=== PATIENT | female | born 1975 | race Caucasian/White ===

== ENCOUNTER 2019-03-03 20:07 | Emergency (ER) | payer MEDICARE, MEDICAID ==
[~2019-03-03] VITALS: Ht 170.2 cm; Wt 95.0 kg
[~2019-03-03 20:07] MED LIST: ALBU8HFA PO
[2019-03-03] MEDS ORDERED: cyclobenzaprine 10mg tablet PO ONE (20:55)
[2019-03-03] MEDS ORDERED: ketorolac trometh. 30mg/ml inj. IM ONE (20:55)
[2019-03-03] MEDS ORDERED: morphine 4 MG/ML inj SYRINge IM ONE ×2 (20:55→23:00)
[2019-03-03 22:46] LABS: CLARITY,URINE CLEAR (Clear); COLOR,URINE YELLOW (Yellow); GLUCOSE, URINE NEGATIVE (Neg); KETONES,URINE NEGATIVE (Neg); LEUKOCYTE ESTERASE ,URINE NEGATIVE (Neg); NITRITES, URINE NEGATIVE (Neg); OCCULT BLOOD,URINE NEGATIVE (Neg); PROTEIN,URINE NEGATIVE (Neg); UROBILINOGEN,URINE 0.2 E.U/dL (0.2-1.0)
[2019-03-03 22:51] LABS: UA COLLECTION TYPE FOLEY CATH
--- NOTE | 2019-03-03 23:55 | NUR ---
Patient with persisting pain despite medication. Dr. Rodriguez notified and she states additional meds will be ordered.
[2019-03-04] MEDS ORDERED: HYDROmorphone 1 mg/ml syringe IV ONE (00:15)
[2019-03-04 00:32] LABS: BASOPHILS # (AUTO) 0.1 X10'3 (0-0.2); BASOPHILS % (AUTO) 0.9 % (0-1); EOSINOPHILS # (AUTO) 0.2 X10'3 (0-0.9); EOSINOPHILS % (AUTO) 3.9 % (0-6); HEMATOCRIT 33.1 % (35.0-45.0); HEMOGLOBIN 11.5 g/dl (12.0-16.0); LYMPHOCYTES # (AUTO) 2.5 X10'3 (1.1-4.8); LYMPHOCYTES % (AUTO) 40.5 % (21-51); MEAN CORPUSCULAR HEMOGLOBIN 35.4 PG (27.0-31.0); MEAN CORPUSCULAR HGB CONC 34.7 g/dL (33.0-36.5); MEAN CORPUSCULAR VOLUME 101.9 FL (78-98); MEAN PLATELET VOLUME 6.7 FL (7.4-10.4); MONOCYTES # (AUTO) 0.5 X10'3 (0-0.9); MONOCYTES % (AUTO) 7.9 % (2-12); NEUTROPHILS # (AUTO) 2.9 X10'3 (1.8-7.7); NEUTROPHILS % (AUTO) 46.8 % (42-75); PLATELET COUNT 280 X10'3 (140-440); RED BLOOD COUNT 3.25 X10'6 (4.20-5.60); WHITE BLOOD COUNT 6.2 X10'3 (4.5-11.0)
--- NOTE | 2019-03-04 00:33 | NUR ---
Report called to [facility] [place] [facility]. Patient updated on POC.
[2019-03-04 00:50] LABS: ALANINE AMINOTRANSFERASE 74 U/L (12-78); ALBUMIN/GLOBULIN RATIO 1.1 (1.1-1.5); ALKALINE PHOSPHATASE 71 IU/L (46-116); ANION GAP 10 (8-16); ASPARTATE AMINO TRANSFERASE 51 U/L (10-37); BILIRUBIN,TOTAL 0.3 MG/DL (0.1-1.0); BLOOD UREA NITROGEN 19 MG/DL (7-18); BUN/CREATININE RATIO 11.2 (6.6-38.0); CALCIUM 9.1 MG/DL (8.5-10.1); CHLORIDE 106 MMOL/L (99-107); GLUCOSE 108 MG/DL (70-104); POTASSIUM 4.8 MMOL/L (3.5-5.1); SODIUM 141 MMOL/L (135-145); TOTAL CARBON DIOXIDE 25.3 MMOL/L (24-32); TOTAL PROTEIN 7.6 G/DL (6.4-8.2); eGFR 33 ML/MIN
[2019-03-04 01:29] VITALS: BP 110/69
== END 2019-03-04 01:31 | disposition short-term general hospital (02) ==
LOC: ER 20:07
DX: M54.16 Radiculopathy, lumbar region (principal); Z56.0 Unemployment, unspecified; Z98.890 Other specified postprocedural states; Z90.710 Acquired absence of both cervix and uterus; Z88.5 Allergy status to narcotic agent
CPT/HCPCS: 36415; 80053; 81003; 85025; 85610; 96372; 96374; 99285; J1170; J1885; J2270

== ENCOUNTER 2019-07-27 12:24 | Emergency (ER) | payer MEDICARE, MEDICAID ==
[~2019-07-27] VITALS: Ht 170.2 cm; Wt 94.5 kg
[2019-07-27 12:39] VITALS: BP 154/95
[2019-07-27 14:30] LABS: URINE HCG NEGATIVE (NEG)
[2019-07-27] MEDS ORDERED: cyclobenzaprine 10mg tablet PO ONE (14:35)
[2019-07-27] MEDS ORDERED: ketorolac trometh. 30mg/ml inj. IM ONE (14:35)
[2019-07-27] MEDS ORDERED: HYDROcodone/acetaminophen 5mg/325mg tablet PO ONE (14:35)
[2019-07-27 14:37] LABS: CLARITY,URINE SLIGHTLY CLOUDY (Clear); COLOR,URINE YELLOW (Yellow); GLUCOSE, URINE NEGATIVE (Neg); KETONES,URINE NEGATIVE (Neg); LEUKOCYTE ESTERASE ,URINE TRACE (Neg); NITRITES, URINE NEGATIVE (Neg); OCCULT BLOOD,URINE NEGATIVE (Neg); PROTEIN,URINE NEGATIVE (Neg); UROBILINOGEN,URINE 0.2 E.U/dL (0.2-1.0)
[2019-07-27 14:40] LABS: UA COLLECTION TYPE CLN CATCH MIDSTREAM
[2019-07-27 14:44] LABS: BACTERIA,URINE 2+ /HPF (Neg); HYALINE CASTS 0-3 /LPF (NEGATIVE); MUCUS STRANDS MANY /LPF (Neg); RBC,URINE NONE SEEN /HPF (0-2); RENAL CELLS, URINE FEW /HPF; SQUAMOUS EPITHELIAL CELL,UR MODERATE /LPF (FEW); TRANSITIONAL EPI CELLS,URINE FEW /HPF; WBC CLUMPS,URINE FEW /HPF (NEGATIVE)
--- NOTE | 2019-07-27 14:58 | NUR ---
Patient back from CT via wheelchair at this time, no signs of distress noted.
[2019-07-27] MEDS ORDERED: NITR100C PO (15:58)
[2019-07-27] MEDS ORDERED: LIDOcaine 5% patch TP ONE (16:10)
[2019-07-27 16:31] LABS: BASOPHILS % (AUTO) 0.8 % (0-1); EOSINOPHILS % (AUTO) 0.5 % (0-6); HEMATOCRIT 35.7 % (35.0-45.0); HEMOGLOBIN 12.2 g/dl (12.0-16.0); LYMPHOCYTES # (AUTO) 1.8 X10'3 (1.1-4.8); LYMPHOCYTES % (AUTO) 28.5 % (21-51); MEAN CORPUSCULAR HEMOGLOBIN 34.9 PG (27.0-31.0); MEAN CORPUSCULAR HGB CONC 34.2 g/dL (33.0-36.5); MONOCYTES # (AUTO) 0.2 X10'3 (0-0.9); MONOCYTES % (AUTO) 3.4 % (2-12); NEUTROPHILS # (AUTO) 4.1 X10'3 (1.8-7.7); NEUTROPHILS % (AUTO) 66.8 % (42-75); PLATELET COUNT 251 X10'3 (140-440); RED CELL DISTRIBUTION WIDTH 13.9 % (11.5-14.5); WHITE BLOOD COUNT 6.2 X10'3 (4.5-11.0)
[2019-07-27 16:44] LABS: ALANINE AMINOTRANSFERASE 59 U/L (12-78); ALBUMIN/GLOBULIN RATIO 1.1 (1.1-1.5); ALKALINE PHOSPHATASE 94 IU/L (46-116); ANION GAP 11 (8-16); ASPARTATE AMINO TRANSFERASE 63 U/L (10-37); BILIRUBIN,TOTAL 0.6 MG/DL (0.1-1.0); BLOOD UREA NITROGEN 21 MG/DL (7-18); BUN/CREATININE RATIO 18.6 (6.6-38.0); CHLORIDE 103 MMOL/L (99-107); CREATININE 1.13 MG/DL (0.40-0.90); LIPASE 200 U/L (73-393); SODIUM 137 MMOL/L (135-145); TOTAL PROTEIN 7.8 G/DL (6.4-8.2); eGFR 52 ML/MIN
[2019-07-27 16:49] LABS: POTASSIUM 4.2 MMOL/L (3.5-5.1)
[2019-07-27 17:10] LABS: GLUCOSE 131 MG/DL (70-104)
[2019-07-27] MEDS ORDERED: CYCL-1 PO (17:24)
[2019-08-18] MEDS ORDERED: LEVO50TA8 PO (13:44)
[2019-08-18] MEDS ORDERED: OMEP-50 PO (13:44)
[2019-08-18] MEDS ORDERED: TRAM50TA2 PO (13:44)
[2019-08-18] MEDS ORDERED: CHOL4PAC2 PO (13:44)
[2019-08-18] MEDS ORDERED: LOSA25TA41 PO (13:44)
[2019-08-18] MEDS ORDERED: BACL20TA PO (13:44)
[2019-08-30] MEDS ORDERED: HYDR50TA65 PO (17:21)
[2019-08-30] MEDS ORDERED: MIRT15TA8 PO (17:21)
[2019-08-30] MEDS ORDERED: TRAZ150T78 PO (17:21)
[2019-08-30] MEDS ORDERED: TRAM50TA2 PO (17:21)
[2019-08-30] MEDS ORDERED: CLON0.5T4 PO (17:21)
[2019-08-30] MEDS ORDERED: LURA20TA PO (17:21)
[2019-08-30] MEDS ORDERED: ESCI20TA45 PO (17:21)
== END 2019-07-27 18:06 | disposition home or self-care (01) ==
LOC: ER 12:25
DX: S33.5XXA Sprain of ligaments of lumbar spine, initial encounter (principal); N39.0 Urinary tract infection, site not specified; M54.5 Low back pain; Z85.9 Personal history of malignant neoplasm, unspecified; Z98.890 Other specified postprocedural states; Z90.710 Acquired absence of both cervix and uterus; Z56.0 Unemployment, unspecified; Z88.5 Allergy status to narcotic agent; Z79.899 Other long term (current) drug therapy; X58.XXXA Exposure to other specified factors, initial encounter; Y93.89 Activity, other specified; Y92.89 Other specified places as the place of occurrence of the external cause; Y99.8 Other external cause status
CPT/HCPCS: 36415; 72131; 80053; 81001; 81025; 83690; 85025; 87088; 96372; 99284; J1885

== ENCOUNTER 2019-08-01 13:56 | Emergency (ER) | payer MEDICARE, MEDICAID ==
[~2019-08-01] VITALS: Ht 170.2 cm; Wt 90.9 kg
[~2019-08-01 13:56] MED LIST changes: +CYCL-1 PO; +NITR100C PO
[2019-08-01 14:25] LABS: CLARITY,URINE CLEAR (Clear); COLOR,URINE YELLOW (Yellow); GLUCOSE, URINE NEGATIVE (Neg); KETONES,URINE NEGATIVE (Neg); LEUKOCYTE ESTERASE ,URINE NEGATIVE (Neg); NITRITES, URINE NEGATIVE (Neg); OCCULT BLOOD,URINE NEGATIVE (Neg); PROTEIN,URINE NEGATIVE (Neg); UROBILINOGEN,URINE 0.2 E.U/dL (0.2-1.0)
[2019-08-01 14:26] LABS: UA COLLECTION TYPE CLN CATCH MIDSTREAM
[2019-08-01 14:30] LABS: URINE HCG NEGATIVE (NEG)
[2019-08-01 14:52] LABS: BASOPHILS # (AUTO) 0.1 X10'3 (0-0.2); BASOPHILS % (AUTO) 1.5 % (0-1); EOSINOPHILS # (AUTO) 0.1 X10'3 (0-0.9); EOSINOPHILS % (AUTO) 1.3 % (0-6); HEMATOCRIT 36.2 % (35.0-45.0); HEMOGLOBIN 12.3 g/dl (12.0-16.0); LYMPHOCYTES # (AUTO) 2.4 X10'3 (1.1-4.8); LYMPHOCYTES % (AUTO) 36.2 % (21-51); MEAN CORPUSCULAR HEMOGLOBIN 35.4 PG (27.0-31.0); MEAN CORPUSCULAR HGB CONC 33.9 g/dL (33.0-36.5); MEAN CORPUSCULAR VOLUME 104.6 FL (78-98); MEAN PLATELET VOLUME 7.6 FL (7.4-10.4); MONOCYTES # (AUTO) 0.3 X10'3 (0-0.9); MONOCYTES % (AUTO) 4.8 % (2-12); NEUTROPHILS # (AUTO) 3.8 X10'3 (1.8-7.7); NEUTROPHILS % (AUTO) 56.2 % (42-75); PLATELET COUNT 268 X10'3 (140-440); RED BLOOD COUNT 3.46 X10'6 (4.20-5.60); RED CELL DISTRIBUTION WIDTH 13.7 % (11.5-14.5); WHITE BLOOD COUNT 6.7 X10'3 (4.5-11.0)
[2019-08-01] MEDS ORDERED: normal saline 1000ML IV soln IVB ONE (14:55)
[2019-08-01] MEDS ORDERED: ketorolac tromethamine 15mg/ml inj. IV ONE (14:55)
[2019-08-01 15:04] LABS: ALANINE AMINOTRANSFERASE 66 U/L (12-78); ALBUMIN 4.1 G/DL (3.4-5.0); ALKALINE PHOSPHATASE 91 IU/L (46-116); ANION GAP 9 (8-16); ASPARTATE AMINO TRANSFERASE 54 U/L (10-37); BILIRUBIN,TOTAL 0.5 MG/DL (0.1-1.0); BLOOD UREA NITROGEN 21 MG/DL (7-18); BUN/CREATININE RATIO 19.4 (6.6-38.0); CALCIUM 9.3 MG/DL (8.5-10.1); CHLORIDE 98 MMOL/L (99-107); CREATININE 1.08 MG/DL (0.40-0.90); GLUCOSE 119 MG/DL (70-104); POTASSIUM 3.6 MMOL/L (3.5-5.1); SODIUM 135 MMOL/L (135-145); TOTAL CARBON DIOXIDE 28.4 MMOL/L (24-32); TOTAL PROTEIN 8.3 G/DL (6.4-8.2); eGFR 55 ML/MIN
[2019-08-01] MEDS ORDERED: morphine 4 MG/ML inj SYRINge IV ONE (15:30)
[2019-08-01 15:33] LABS: ETHANOL < 0.010 GM/DL (0.0-0.010)
--- NOTE | 2019-08-01 15:51 | NUR ---
gave morphine pts pain 09/10, vs updated, ultrasound at bedside
[2019-08-01] MEDS ORDERED: LIDOcaine 1% 30ml preserv. free vial SQ STA (16:36)
--- NOTE | 2019-08-01 16:59 | NUR ---
set up lidocain and needles for provider and updated vs
[2019-08-01 17:57] VITALS: BP 109/70
[2019-08-18] MEDS ORDERED: OMEP-50 PO (13:44)
[2019-08-18] MEDS ORDERED: CHOL4PAC2 PO (13:44)
[2019-08-18] MEDS ORDERED: TRAM50TA2 PO (13:44)
[2019-08-18] MEDS ORDERED: LOSA25TA41 PO (13:44)
[2019-08-18] MEDS ORDERED: LEVO50TA8 PO (13:44)
[2019-08-18] MEDS ORDERED: BACL20TA PO (13:44)
[2019-08-30] MEDS ORDERED: CLON0.5T4 PO (17:21)
[2019-08-30] MEDS ORDERED: HYDR50TA65 PO (17:21)
[2019-08-30] MEDS ORDERED: TRAZ150T78 PO (17:21)
[2019-08-30] MEDS ORDERED: LURA20TA PO (17:21)
[2019-08-30] MEDS ORDERED: ESCI20TA45 PO (17:21)
[2019-08-30] MEDS ORDERED: MIRT15TA8 PO (17:21)
[2019-08-30] MEDS ORDERED: TRAM50TA2 PO (17:21)
== END 2019-08-01 18:00 | disposition home or self-care (01) ==
LOC: ER 13:56
DX: R10.9 Unspecified abdominal pain (principal); I10 Essential (primary) hypertension; R42 Dizziness and giddiness; R51 Headache; Z85.9 Personal history of malignant neoplasm, unspecified; Z90.710 Acquired absence of both cervix and uterus; Z98.890 Other specified postprocedural states; Z87.891 Personal history of nicotine dependence; Z56.0 Unemployment, unspecified; Z88.5 Allergy status to narcotic agent; Z79.899 Other long term (current) drug therapy
CPT/HCPCS: 36415; 76775; 80053; 80320; 81003; 81025; 85025; 96374; 96375; 99285; J1885; J2270; J7030

== ENCOUNTER 2019-10-09 07:58 | Emergency (ER) | payer MEDICARE, MEDICAID ==
[~2019-10-09] VITALS: Ht 170.2 cm; Wt 100.7 kg
[~2019-10-09 07:58] MED LIST changes: -ALBU8HFA PO; +CHOL4PAC2 PO; +CLON0.5T4 PO; -CYCL-1 PO; +ESCI20TA45 PO; +HYDR50TA65 PO; +LEVO50TA8 PO; +LOSA25TA41 PO; +LURA20TA PO; +MIRT15TA8 PO; -NITR100C PO; +OMEP-50 PO; +TRAM50TA2 PO; +TRAZ150T78 PO
[2019-10-09] MEDS ORDERED: ketorolac tromethamine 15mg/ml inj. IM ONE (08:40)
[2019-10-09] MEDS ORDERED: DIAZ-351 PO (08:47)
[2019-10-09] MEDS ORDERED: METH-360 PO (08:47)
[2019-10-09] MEDS ORDERED: PRED20TA PO (08:47)
[2019-10-09] MEDS ORDERED: diazepam 5mg tablet PO ONE (09:00)
[2019-10-09] MEDS ORDERED: dexamethasone 4mg tablet PO ONE (09:00)
[2019-10-09 09:22] VITALS: BP 117/78
== END 2019-10-09 09:23 | disposition home or self-care (01) ==
LOC: ER 07:58
DX: S16.1XXA Strain of muscle, fascia and tendon at neck level, initial encounter (principal); G58.8 Other specified mononeuropathies; I10 Essential (primary) hypertension; Z85.9 Personal history of malignant neoplasm, unspecified; Z90.710 Acquired absence of both cervix and uterus; Z98.890 Other specified postprocedural states; Z56.0 Unemployment, unspecified; Z88.5 Allergy status to narcotic agent; Z79.899 Other long term (current) drug therapy; X58.XXXA Exposure to other specified factors, initial encounter; Y93.89 Activity, other specified; Y92.89 Other specified places as the place of occurrence of the external cause; Y99.8 Other external cause status
CPT/HCPCS: 96372; 99284; J1885

== ENCOUNTER 2019-10-10 03:21 | Emergency (ER) | payer MEDICARE, MEDICAID ==
[~2019-10-10] VITALS: Ht 170.2 cm; Wt 95.5 kg
[~2019-10-10 03:21] MED LIST changes: +METH-360 PO; +PRED20TA PO
[2019-10-10] MEDS ORDERED: normal saline 1000ml 1,000 ML IV ONE (04:00)
[2019-10-10] MEDS ORDERED: aspirin 325mg tablet PO ONE (04:00)
[2019-10-10] MEDS ORDERED: acetaminophen 325mg tablet PO ONE (04:00)
[2019-10-10] MEDS ORDERED: HYDROcodone/acetaminophen 5mg/325mg tablet PO ONE (04:00)
[2019-10-10] MEDS ORDERED: proCHLORperazine 10 MG/2 ml inj IV ONE (04:00)
[2019-10-10] MEDS ORDERED: ketorolac trometh. 30mg/ml inj. IV ONE (04:00)
[2019-10-10 04:55] VITALS: BP 135/77
== END 2019-10-10 04:56 | disposition home or self-care (01) ==
LOC: ER 03:21
DX: R51 Headache (principal); M54.5 Low back pain; M54.2 Cervicalgia; I10 Essential (primary) hypertension; Z90.710 Acquired absence of both cervix and uterus; Z56.0 Unemployment, unspecified; Z98.890 Other specified postprocedural states; Z88.5 Allergy status to narcotic agent; Z79.899 Other long term (current) drug therapy
CPT/HCPCS: 96374; 96375; 99284; J0780; J1885; J7030; 96361

== ENCOUNTER 2020-12-27 22:29 | Emergency (ER) | payer MEDICARE, MEDICAID ==
[~2020-12-27] VITALS: Ht 170.2 cm; Wt 100.0 kg
[~2020-12-27 22:29] MED LIST changes: +ESCI20TA39 PO; -ESCI20TA45 PO; +MIRT-87 PO; -MIRT15TA8 PO
[2020-12-27 23:37] LABS: HEMOGLOBIN 10.1 g/dl (12.0-16.0)
[2020-12-27 23:39] LABS: BASOPHILS % (AUTO) 0.6 % (0-1); EOSINOPHILS # (AUTO) 0.1 X10'3 (0-0.9); EOSINOPHILS % (AUTO) 2.4 % (0-6); HEMATOCRIT 29.1 % (35.0-45.0); LYMPHOCYTES # (AUTO) 1.9 X10'3 (1.1-4.8); LYMPHOCYTES % (AUTO) 37.4 % (21-51); MEAN CORPUSCULAR HEMOGLOBIN 34.4 PG (27.0-31.0); MEAN CORPUSCULAR HGB CONC 34.8 g/dL (33.0-36.5); MEAN CORPUSCULAR VOLUME 98.9 FL (78-98); MEAN PLATELET VOLUME 7.1 FL (7.4-10.4); MONOCYTES # (AUTO) 0.3 X10'3 (0-0.9); MONOCYTES % (AUTO) 6.4 % (2-12); NEUTROPHILS # (AUTO) 2.7 X10'3 (1.8-7.7); NEUTROPHILS % (AUTO) 53.2 % (42-75); PLATELET COUNT 212 X10'3 (140-440); RED BLOOD COUNT 2.94 X10'6 (4.20-5.60); RED CELL DISTRIBUTION WIDTH 13.2 % (11.5-14.5)
[2020-12-27 23:50] LABS: ALANINE AMINOTRANSFERASE 23 U/L (12-78); ALBUMIN 3.5 G/DL (3.4-5.0); ALBUMIN/GLOBULIN RATIO 0.9 (1.1-1.5); ALKALINE PHOSPHATASE 56 IU/L (46-116); ANION GAP 12 (8-16); ASPARTATE AMINO TRANSFERASE 13 U/L (10-37); BILIRUBIN,TOTAL 0.2 MG/DL (0.1-1.0); BLOOD UREA NITROGEN 19 MG/DL (7-18); BUN/CREATININE RATIO 19.4 (6.6-38.0); CALCIUM 8.8 MG/DL (8.5-10.1); CHLORIDE 104 MMOL/L (99-107); CREATININE 0.98 MG/DL (0.40-0.90); GLUCOSE 124 MG/DL (70-104); POTASSIUM 4.2 MMOL/L (3.5-5.1); SODIUM 142 MMOL/L (135-145); TOTAL CARBON DIOXIDE 25.8 MMOL/L (24-32); TOTAL PROTEIN 7.4 G/DL (6.4-8.2); eGFR 61 ML/MIN
[2020-12-27 23:58] LABS: CLARITY,URINE CLEAR (Clear); COLOR,URINE STRAW (Yellow); GLUCOSE, URINE NEGATIVE (Neg); KETONES,URINE TRACE mg/dl (Neg); LEUKOCYTE ESTERASE ,URINE NEGATIVE (Neg); NITRITES, URINE NEGATIVE (Neg); OCCULT BLOOD,URINE NEGATIVE (Neg); PROTEIN,URINE NEGATIVE (Neg); UA COLLECTION TYPE CLN CATCH MIDSTREAM; UROBILINOGEN,URINE 0.2 E.U/dL (0.2-1.0)
[2020-12-27 23:59] LABS: ETHANOL 0.092 GM/DL (0.0-0.010)
[2020-12-27 23:59] LABS: URINE HCG NEGATIVE (NEG)
[2020-12-28 00:04] LABS: URINE AMPHETAMINE SCREEN NEGATIVE (Neg); URINE BARBITUATE SCREEN NEGATIVE (Neg); URINE BENZODIAZEPINES SCREEN NEGATIVE (Neg); URINE CANNABINOID SCREEN NEGATIVE (Neg); URINE COCAINE SCREEN NEGATIVE (Neg); URINE METHADONE SCREEN NEGATIVE (Neg); URINE OPIATE SCREEN POSITIVE (Neg); URINE PHENCYCLIDINE SCREEN NEGATIVE (Neg)
[2020-12-28 00:16] LABS: TOTAL CELLS COUNTED 100
[2020-12-28 00:17] LABS: PLATELET ESTIMATE NORMAL
[2020-12-28 00:20] LABS: LARGE PLATELETS FEW
[2020-12-28] MEDS ORDERED: CYCL-394 PO (00:40)
[2020-12-28] MEDS ORDERED: HYDR-3965 PO (00:42)
[2020-12-28 06:07] VITALS: BP 116/70
--- NOTE | 2020-12-28 08:24 | NUR ---
PACKET FAXED TO [facility]
== END 2020-12-28 10:01 ==
LOC: ER 22:30
DX: R45.851 Suicidal ideations (principal); I10 Essential (primary) hypertension; Z87.440 Personal history of urinary (tract) infections; Z87.442 Personal history of urinary calculi; Z98.891 History of uterine scar from previous surgery; Z90.710 Acquired absence of both cervix and uterus; F33.9 Major depressive disorder, recurrent, unspecified; Z88.8 Allergy status to other drugs, medicaments and biological substances; Z79.899 Other long term (current) drug therapy; Z85.9 Personal history of malignant neoplasm, unspecified; Z56.0 Unemployment, unspecified
CPT/HCPCS: 36415; 80053; 80305; 80320; 81003; 81025; 84443; 85007; 85025; 99285

== ENCOUNTER 2021-01-02 23:24 | Emergency (ER) | payer MEDICARE, MEDICAID ==
[~2021-01-02] VITALS: Ht 170.2 cm; Wt 100.0 kg
[~2021-01-02 23:24] MED LIST changes: -CHOL4PAC2 PO; -CLON0.5T4 PO; +CYCL-394 PO; -ESCI20TA39 PO; +HYDR-3965 PO; -HYDR50TA65 PO; -LEVO50TA8 PO; -LURA20TA PO; -METH-360 PO; -MIRT-87 PO; -OMEP-50 PO; -PRED20TA PO; -TRAM50TA2 PO; -TRAZ150T78 PO
[2021-01-02 23:48] VITALS: BP 140/92
== END 2021-01-03 03:46 | disposition left against medical advice (07) ==
LOC: ER 23:25
DX: Z53.21 Procedure and treatment not carried out due to patient leaving prior to being seen by health care provider (principal)

== ENCOUNTER 2021-01-03 07:43 | Emergency (ER) | payer MEDICARE, MEDICAID ==
[~2021-01-03] VITALS: Ht 170.2 cm; Wt 104.5 kg
[2021-01-03 07:55] VITALS: BP 154/91
== END 2021-01-03 08:37 | disposition home or self-care (01) ==
LOC: ER 07:43
DX: F33.9 Major depressive disorder, recurrent, unspecified (principal); R45.851 Suicidal ideations; I10 Essential (primary) hypertension; Z87.442 Personal history of urinary calculi; Z87.440 Personal history of urinary (tract) infections; Z85.9 Personal history of malignant neoplasm, unspecified; Z98.891 History of uterine scar from previous surgery; Z90.710 Acquired absence of both cervix and uterus; Z59.00 Homelessness unspecified; Z88.8 Allergy status to other drugs, medicaments and biological substances; Z79.899 Other long term (current) drug therapy
CPT/HCPCS: 99281

== ENCOUNTER 2021-01-13 14:01 | Emergency (ER) | payer MEDICARE, MEDICAID ==
[~2021-01-13] VITALS: Ht 170.2 cm; Wt 100.0 kg
[2021-01-13 14:18] VITALS: BP 115/46
== END 2021-01-13 15:36 | disposition left against medical advice (07) ==
LOC: ER 14:03
DX: M79.89 Other specified soft tissue disorders (principal); Z53.21 Procedure and treatment not carried out due to patient leaving prior to being seen by health care provider

== ENCOUNTER 2021-01-14 15:51 | Emergency (ER) | payer MEDICARE, MEDICAID ==
[~2021-01-14] VITALS: Ht 172.1 cm; Wt 99.5 kg
[2021-01-14 16:07] VITALS: BP 115/55
[2021-01-15] MEDS ORDERED: FURO-150 PO (13:14)
== END 2021-01-14 21:21 | disposition left against medical advice (07) ==
LOC: ER 15:52
DX: R60.0 Localized edema (principal); Z53.21 Procedure and treatment not carried out due to patient leaving prior to being seen by health care provider

== ENCOUNTER 2021-01-15 07:08 | Emergency (ER) | payer MEDICARE, MEDICAID ==
[~2021-01-15] VITALS: Ht 170.2 cm; Wt 100.0 kg
[2021-01-15 07:34] VITALS: BP 119/69
[2021-01-15 08:16] LABS: BASOPHILS % (AUTO) 0.7 % (0-1); EOSINOPHILS # (AUTO) 0.2 X10'3 (0-0.9); EOSINOPHILS % (AUTO) 3.6 % (0-6); HEMATOCRIT 29.4 % (35.0-45.0); HEMOGLOBIN 10.2 g/dl (12.0-16.0); LYMPHOCYTES # (AUTO) 2.5 X10'3 (1.1-4.8); LYMPHOCYTES % (AUTO) 42.9 % (21-51); MEAN CORPUSCULAR HEMOGLOBIN 33.9 PG (27.0-31.0); MEAN CORPUSCULAR HGB CONC 34.6 g/dL (33.0-36.5); MEAN CORPUSCULAR VOLUME 97.8 FL (78-98); MEAN PLATELET VOLUME 7.4 FL (7.4-10.4); MONOCYTES # (AUTO) 0.4 X10'3 (0-0.9); MONOCYTES % (AUTO) 7.6 % (2-12); NEUTROPHILS # (AUTO) 2.6 X10'3 (1.8-7.7); NEUTROPHILS % (AUTO) 45.2 % (42-75); PLATELET COUNT 276 X10'3 (140-440); RED BLOOD COUNT 3.01 X10'6 (4.20-5.60); RED CELL DISTRIBUTION WIDTH 13.5 % (11.5-14.5); WHITE BLOOD COUNT 5.8 X10'3 (4.5-11.0)
[2021-01-15 08:26] LABS: ALANINE AMINOTRANSFERASE 32 U/L (12-78); ALBUMIN 3.5 G/DL (3.4-5.0); ALBUMIN/GLOBULIN RATIO 0.9 (1.1-1.5); ALKALINE PHOSPHATASE 86 IU/L (46-116); ANION GAP 9 (8-16); ASPARTATE AMINO TRANSFERASE 24 U/L (10-37); BILIRUBIN,TOTAL 0.3 MG/DL (0.1-1.0); BLOOD UREA NITROGEN 22 MG/DL (7-18); BUN/CREATININE RATIO 22.4 (6.6-38.0); CALCIUM 8.8 MG/DL (8.5-10.1); CHLORIDE 103 MMOL/L (99-107); CREATININE 0.98 MG/DL (0.40-0.90); GLUCOSE 137 MG/DL (70-104); POTASSIUM 4.6 MMOL/L (3.5-5.1); SODIUM 140 MMOL/L (135-145); TOTAL CARBON DIOXIDE 28.5 MMOL/L (24-32); TOTAL PROTEIN 7.2 G/DL (6.4-8.2); eGFR 61 ML/MIN
[2021-01-15] MEDS ORDERED: FURO-150 PO (13:14)
== END 2021-01-15 14:15 | disposition home or self-care (01) ==
LOC: ER 07:09
DX: R60.9 Edema, unspecified (principal); I10 Essential (primary) hypertension; Z87.442 Personal history of urinary calculi; Z56.0 Unemployment, unspecified; Z88.5 Allergy status to narcotic agent
CPT/HCPCS: 36415; 71045; 80053; 83880; 84484; 85025; 93005; 99285

== ENCOUNTER 2021-01-25 11:07 | Emergency (ER) | payer MEDICARE, MEDICAID ==
[~2021-01-25 11:07] MED LIST changes: +FURO-150 PO
== END 2021-01-25 12:24 | disposition left against medical advice (07) ==
LOC: ER 11:08
DX: M79.606 Pain in leg, unspecified (principal); Z53.21 Procedure and treatment not carried out due to patient leaving prior to being seen by health care provider

== ENCOUNTER 2021-01-26 19:17 | Emergency (ER) | payer MEDICARE, MEDICAID ==
[~2021-01-26] VITALS: Ht 170.2 cm; Wt 115.9 kg
[2021-01-26 22:13] LABS: RED CELL DISTRIBUTION WIDTH 13.2 % (11.5-14.5)
[2021-01-26 22:15] LABS: BASOPHILS # (AUTO) 0.1 X10'3 (0-0.2); BASOPHILS % (AUTO) 1.4 % (0-1); EOSINOPHILS # (AUTO) 0.3 X10'3 (0-0.9); EOSINOPHILS % (AUTO) 2.9 % (0-6); HEMATOCRIT 28.6 % (35.0-45.0); HEMOGLOBIN 10.1 g/dl (12.0-16.0); LYMPHOCYTES # (AUTO) 2.2 X10'3 (1.1-4.8); LYMPHOCYTES % (AUTO) 23.3 % (21-51); MEAN CORPUSCULAR HEMOGLOBIN 33.6 PG (27.0-31.0); MEAN CORPUSCULAR HGB CONC 35.3 g/dL (33.0-36.5); MONOCYTES # (AUTO) 0.7 X10'3 (0-0.9); MONOCYTES % (AUTO) 7.5 % (2-12); NEUTROPHILS # (AUTO) 6.1 X10'3 (1.8-7.7); NEUTROPHILS % (AUTO) 64.9 % (42-75); PLATELET COUNT 413 X10'3 (140-440); RED BLOOD COUNT 3.01 X10'6 (4.20-5.60); WHITE BLOOD COUNT 9.4 X10'3 (4.5-11.0)
[2021-01-26 22:27] LABS: ALANINE AMINOTRANSFERASE 33 U/L (12-78); ALBUMIN 3.5 G/DL (3.4-5.0); ALBUMIN/GLOBULIN RATIO 0.9 (1.1-1.5); ALKALINE PHOSPHATASE 83 IU/L (46-116); ANION GAP 8 (8-16); ASPARTATE AMINO TRANSFERASE 21 U/L (10-37); BILIRUBIN,TOTAL 0.3 MG/DL (0.1-1.0); BLOOD UREA NITROGEN 17 MG/DL (7-18); BUN/CREATININE RATIO 15.5 (6.6-38.0); CALCIUM 9.4 MG/DL (8.5-10.1); CHLORIDE 98 MMOL/L (99-107); GLUCOSE 141 MG/DL (70-104); POTASSIUM 4.2 MMOL/L (3.5-5.1); SODIUM 135 MMOL/L (135-145); TOTAL CARBON DIOXIDE 28.9 MMOL/L (24-32); TOTAL PROTEIN 7.5 G/DL (6.4-8.2); eGFR 53 ML/MIN
[2021-01-26] MEDS ORDERED: acetaminophen 325mg tablet PO ONE (23:05)
[2021-01-26 23:21] VITALS: BP 110/77
[2021-01-26] MEDS ORDERED: ketorolac tromethamine 15mg/ml inj. IM ONE (23:25)
== END 2021-01-27 00:14 | disposition home or self-care (01) ==
LOC: ER 19:17
DX: R60.0 Localized edema (principal); R06.02 Shortness of breath; R05.9 Cough, unspecified; I10 Essential (primary) hypertension; F32.9 Major depressive disorder, single episode, unspecified; Z87.442 Personal history of urinary calculi; Z87.440 Personal history of urinary (tract) infections; Z85.9 Personal history of malignant neoplasm, unspecified; Z90.710 Acquired absence of both cervix and uterus; Z98.890 Other specified postprocedural states; Z56.0 Unemployment, unspecified; Z88.5 Allergy status to narcotic agent; Z88.8 Allergy status to other drugs, medicaments and biological substances; Z79.899 Other long term (current) drug therapy
CPT/HCPCS: 36415; 71045; 80053; 83880; 85025; 96372; 99284; J1885

== ENCOUNTER 2021-02-15 16:32 | Emergency (ER) | payer MEDICARE, MEDICAID ==
[~2021-02-15] VITALS: Ht 170.2 cm; Wt 104.5 kg
--- NOTE | 2021-02-15 17:51 | NUR ---
CALLED POISON CONTROL; DINESH BARNES: PROPANOLOL CAN CAUSE HYPOTENSION, SEIZURES, QR WIDENING; COULD MONITOR/OBS UP TO 12 HRS; CHECK ALL NORMAL LABS AND EKG; "MOSTLY SYMPTOMATIC CARE"; GLUCAGON IF NECESSARY 5MG IV BOLUS THEN START 5MG PER HOUR DRIP UP TO 10 MG PER HOUR BOLUS AND DRIP; CALL POISON CONTROL IF PT REMAINS HYPOTENSIVE BRADYCARDIC. CASE [id number]
--- NOTE | 2021-02-15 18:29 | NUR ---
Patient awake, alert, and orientedx4. She is laughing and joking about taking her medication and cannot/won't provide accurate details of when or how many pills she took. Up to commode and back to bed without incident.
[2021-02-15 18:36] LABS: ALANINE AMINOTRANSFERASE 31 U/L (12-78); ALBUMIN 4.3 G/DL (3.4-5.0); ALKALINE PHOSPHATASE 63 IU/L (46-116); ANION GAP 12 (8-16); ASPARTATE AMINO TRANSFERASE 20 U/L (10-37); BILIRUBIN,TOTAL 0.3 MG/DL (0.1-1.0); BLOOD UREA NITROGEN 24 MG/DL (7-18); BUN/CREATININE RATIO 22.9 (6.6-38.0); CALCIUM 9.8 MG/DL (8.5-10.1); CHLORIDE 101 MMOL/L (99-107); CREATININE 1.05 MG/DL (0.40-0.90); GLUCOSE 127 MG/DL (70-104); POTASSIUM 3.3 MMOL/L (3.5-5.1); SODIUM 142 MMOL/L (135-145); TOTAL CARBON DIOXIDE 28.8 MMOL/L (24-32); TOTAL PROTEIN 8.8 G/DL (6.4-8.2); eGFR 56 ML/MIN
[2021-02-15 18:41] LABS: MEAN PLATELET VOLUME 7.5 FL (7.4-10.4); MONOCYTES # (AUTO) 0.3 X10'3 (0-0.9); RED CELL DISTRIBUTION WIDTH 14.6 % (11.5-14.5)
[2021-02-15 18:43] LABS: BASOPHILS # (AUTO) 0.1 X10'3 (0-0.2); BASOPHILS % (AUTO) 1.5 % (0-1); EOSINOPHILS % (AUTO) 0.6 % (0-6); HEMATOCRIT 35.8 % (35.0-45.0); HEMOGLOBIN 12.2 g/dl (12.0-16.0); LYMPHOCYTES # (AUTO) 2.5 X10'3 (1.1-4.8); LYMPHOCYTES % (AUTO) 32.9 % (21-51); MEAN CORPUSCULAR HEMOGLOBIN 31.4 PG (27.0-31.0); MEAN CORPUSCULAR HGB CONC 34.2 g/dL (33.0-36.5); MEAN CORPUSCULAR VOLUME 91.6 FL (78-98); NEUTROPHILS # (AUTO) 4.6 X10'3 (1.8-7.7); PLATELET COUNT 368 X10'3 (140-440); WHITE BLOOD COUNT 7.6 X10'3 (4.5-11.0)
[2021-02-15 18:44] LABS: URINE AMPHETAMINE SCREEN POSITIVE (Neg); URINE BARBITUATE SCREEN NEGATIVE (Neg); URINE BENZODIAZEPINES SCREEN NEGATIVE (Neg); URINE CANNABINOID SCREEN NEGATIVE (Neg); URINE COCAINE SCREEN NEGATIVE (Neg); URINE METHADONE SCREEN NEGATIVE (Neg); URINE OPIATE SCREEN NEGATIVE (Neg); URINE PHENCYCLIDINE SCREEN NEGATIVE (Neg)
[2021-02-15 18:45] LABS: ETHANOL 0.135 GM/DL (0.0-0.010)
[2021-02-15 18:48] LABS: URINE HCG NEGATIVE (NEG)
[2021-02-15 18:50] LABS: ACETAMINOPHEN < 2.0 UG/ML (10-30)
--- NOTE | 2021-02-15 19:30 | NUR ---
QTC greater than 500 on 5 lead. 12 lead EKG repeated and has increased since previous. Poison control contacted and updated with current numbers and previous EKG numbers discussed with them as well. They recommend giving potassium to keep it above 4 as well as 1-2 amps bicarb and 1-2 grams of magnesium with a repeat EKG to evaluate QTC and QRS.
--- NOTE | 2021-02-15 19:31 | NUR ---
Bong Collins notified of conversation with poison control.
[2021-02-15] MEDS ORDERED: magnesium 2GM in 50ml NS 50 ML IV ONE (19:35)
[2021-02-15] MEDS ORDERED: potassium Cl 40 mEq/0.45% sodium chloride IV soln 520ml IV ONE (19:35)
[2021-02-15] MEDS ORDERED: sodium bicarbonate (8.4%) inj. 50 MEQ in dextrose 5%-water 1,000 ML IV SCH (19:35)
[2021-02-15] MEDS ORDERED: sodium bicarbonate (8.4%) 1 mEq/ml syringe IV ONE (19:45)
[2021-02-15] MEDS ORDERED: sodium bicarbonate (8.4%) inj. 1 MEQ/ML ML ONE (20:03)
[2021-02-15] MEDS: potassium Cl 10 mEq/100mL bag IV SCH ×3 (20:19→21:08)
[2021-02-15 20:25] LABS: TOTAL CELLS COUNTED 100
[2021-02-15] MEDS ORDERED: potassium Cl 20 mEq SR tablet PO STA (20:25)
[2021-02-15 20:27] LABS: LARGE PLATELETS FEW; PLATELET ESTIMATE NORMAL
--- NOTE | 2021-02-15 20:30 | NUR ---
Patient resting, no distress.
--- NOTE | 2021-02-15 21:50 | NUR ---
patient is calm and cooperative, denies pain, vss
--- NOTE | 2021-02-15 22:30 | NUR ---
patient appears to be resting comfortably with zero signs or symptoms of distress or pain
[2021-02-15 23:19] LABS: MAGNESIUM 2.2 MG/DL (1.5-2.4); POTASSIUM 3.8 MMOL/L (3.5-5.1)
--- NOTE | 2021-02-15 23:48 | NUR ---
patient amb ind to BR and back. denies pain.
--- NOTE | 2021-02-16 00:46 | NUR ---
patient appears to be sleeping with zero s+s distress or pain
[2021-02-16] MEDS ORDERED: potassium Cl 20 mEq SR tablet PO STA (00:51)
--- NOTE | 2021-02-16 01:07 | NUR ---
Resting comfortably, no distress.
--- NOTE | 2021-02-16 02:16 | NUR ---
resting comfortably in bed
--- NOTE | 2021-02-16 03:30 | NUR ---
prosper complains of intermittent back pain worsening. see MD cha and MAR.
[2021-02-16] MEDS ORDERED: HYDROcodone/acetaminophen 5mg/325mg tablet PO ONE (03:35)
--- NOTE | 2021-02-16 04:48 | NUR ---
patient appears asleep without distress or pain
[2021-02-16 05:17] VITALS: BP 120/67
--- NOTE | 2021-02-16 06:45 | NUR ---
Pt.ambulatory from ER, no distress.
--- NOTE | 2021-02-16 06:50 | NUR ---
Patient placed on a school bus monitor. Patient in NSR. No ectopy seen. Continue to monitor.
--- NOTE | 2021-02-16 08:45 | NUR ---
Pt. in bed eating breakfast, no distress
--- NOTE | 2021-02-16 08:45 | NUR ---
Elsie olson in ED - 02/16/21 at 0913 by MARY Pt. in bed eating breakfast, no distress
--- NOTE | 2021-02-16 08:50 | NUR ---
[facility] Packet sent.
[2021-02-16] MEDS ORDERED: LOSA50TA3 PO (10:37)
[2021-02-16] MEDS ORDERED: CLON0.5T4 PO (10:37)
[2021-02-16] MEDS ORDERED: PROP80TA4 PO (10:37)
[2021-02-16] MEDS ORDERED: LURA60TA PO (10:37)
[2021-02-16] MEDS ORDERED: NICO-631 TD (10:37)
[2021-02-16] MEDS ORDERED: CLON0.252 PO (10:37)
[2021-02-16] MEDS ORDERED: OMEP-50 PO (10:37)
--- NOTE | 2021-02-16 10:45 | NUR ---
Pt. awake in bed and talking to pt. next to her, no distress
[2021-02-16] MEDS ORDERED: nicotine 14mg patch - 24hr TD SCH (11:15)
--- NOTE | 2021-02-16 11:41 | NUR ---
Pt. reported she had a vape pen in her bra and wanted to give to editorial writer. Multi colored vape recieved and name sticker applied, inventory updated, and item placed in locker.
--- NOTE | 2021-02-16 12:45 | NUR ---
Pt. sitting in bed awake, no s/sx distress
[2021-02-16] MEDS ORDERED: HYDROcodone/acetaminophen 5mg/325mg tablet PO SCH (13:00)
[2021-02-16] MEDS ORDERED: CLONAZEPAM 0.25 MG oral disentigrating tablet (ODT) PO SCH (13:00)
--- NOTE | 2021-02-16 14:15 | NUR ---
RN spoke to LES Caceres as patient kept insisting that she doesn't need to be here. "The things I said, I said when I was drunk. I am not suicidal and I brought myself in here." Patient insisted on seeing the Doctor. LES Montenegro ordered an additional EKG. QT interval is going down and patient's mentation is good. Vital signs are stable. LES Montenegro saw patient and will discharge.
[2021-02-16] MEDS ORDERED: lurasidone 60mg tablet PO SCH (17:30)
[2021-02-16] MEDS ORDERED: propranolol 40mg tablet PO SCH (20:00)
[2021-02-16] MEDS ORDERED: clonazePAM 0.5mg tablet PO SCH (20:00)
[2021-02-16] MEDS ORDERED: cyclobenzaprine 10mg tablet PO SCH (20:00)
[2021-02-17] MEDS ORDERED: losartan 50mg tablet PO SCH (08:00)
[2021-02-17] MEDS ORDERED: pantoprazole 40mg Tablet.DR PO SCH (08:00)
== END 2021-02-16 16:28 | disposition home or self-care (01) ==
LOC: ER 16:34
DX: R45.851 Suicidal ideations (principal); R42 Dizziness and giddiness; I10 Essential (primary) hypertension; F32.9 Major depressive disorder, single episode, unspecified; Z87.442 Personal history of urinary calculi; Z87.440 Personal history of urinary (tract) infections; Z85.9 Personal history of malignant neoplasm, unspecified; Z90.710 Acquired absence of both cervix and uterus; Z98.890 Other specified postprocedural states; Z56.0 Unemployment, unspecified; Z88.5 Allergy status to narcotic agent; Z88.8 Allergy status to other drugs, medicaments and biological substances; Z79.899 Other long term (current) drug therapy
CPT/HCPCS: 36415; 80053; 80305; 80320; 80329; 81025; 83735; 84132; 84443; 85007; 85025; 93005; 96365; 96366; 96375; 99285; J3475; J3480; J3490

== ENCOUNTER 2021-08-01 13:00 | Emergency (ER) | payer MEDICARE, MEDICAID ==
[~2021-08-01] VITALS: Ht 170.2 cm; Wt 97.3 kg
[~2021-08-01 13:00] MED LIST changes: +CLON0.252 PO; +CLON0.5T4 PO; -FURO-150 PO; -LOSA25TA41 PO; +LOSA50TA3 PO; +LURA60TA PO; +NICO-631 TD; +OMEP20CA16 PO; +PROP80TA4 PO
[2021-08-01 13:23] LABS: BASOPHILS % (AUTO) 0.2 % (0-1); EOSINOPHILS % (AUTO) 0.2 % (0-6); HEMATOCRIT 39.2 % (35.0-45.0); HEMOGLOBIN 13.2 g/dl (12.0-16.0); LYMPHOCYTES % (AUTO) 10.1 % (21-51); MEAN CORPUSCULAR HEMOGLOBIN 31.9 PG (27.0-31.0); MEAN CORPUSCULAR HGB CONC 33.7 g/dL (33.0-36.5); MEAN CORPUSCULAR VOLUME 94.7 FL (78-98); MEAN PLATELET VOLUME 7.4 FL (7.4-10.4); MONOCYTES # (AUTO) 0.4 X10'3 (0-0.9); MONOCYTES % (AUTO) 3.6 % (2-12); NEUTROPHILS # (AUTO) 8.5 X10'3 (1.8-7.7); NEUTROPHILS % (AUTO) 85.9 % (42-75); PLATELET COUNT 280 X10'3 (140-440); RED BLOOD COUNT 4.14 X10'6 (4.20-5.60); RED CELL DISTRIBUTION WIDTH 13.5 % (11.5-14.5); WHITE BLOOD COUNT 9.9 X10'3 (4.5-11.0)
[2021-08-01] MEDS ORDERED: CefTRIAXone 2gm/NS 100ml IVPB 100 ML IV ONE (13:25)
[2021-08-01] MEDS ORDERED: normal saline 1000ML IV soln IV ONE (13:25)
[2021-08-01 13:36] LABS: UA COLLECTION TYPE CLN CATCH MIDSTREAM
[2021-08-01 13:37] LABS: CLARITY,URINE SLIGHTLY CLOUDY (Clear); COLOR,URINE YELLOW (Yellow); GLUCOSE, URINE NEGATIVE (Neg); KETONES,URINE NEGATIVE (Neg); LEUKOCYTE ESTERASE ,URINE SMALL (Neg); NITRITES, URINE POSITIVE (Neg); OCCULT BLOOD,URINE TRACE-INTACT (Neg); PROTEIN,URINE TRACE mg/dl (Neg); UROBILINOGEN,URINE 0.2 E.U/dL (0.2-1.0)
[2021-08-01 13:38] LABS: ALANINE AMINOTRANSFERASE 24 U/L (12-78); ALBUMIN 3.6 G/DL (3.4-5.0); ALBUMIN/GLOBULIN RATIO 0.8 (1.1-1.5); ALKALINE PHOSPHATASE 88 IU/L (46-116); ANION GAP 10 (8-16); ASPARTATE AMINO TRANSFERASE 21 U/L (10-37); BILIRUBIN,TOTAL 0.8 MG/DL (0.1-1.0); BLOOD UREA NITROGEN 12 MG/DL (7-18); BUN/CREATININE RATIO 10.5 (6.6-38.0); CALCIUM 8.9 MG/DL (8.5-10.1); CHLORIDE 103 MMOL/L (99-107); CREATININE 1.14 MG/DL (0.40-0.90); GLUCOSE 171 MG/DL (70-104); POTASSIUM 3.8 MMOL/L (3.5-5.1); SODIUM 139 MMOL/L (135-145); TOTAL CARBON DIOXIDE 26.3 MMOL/L (24-32); TOTAL PROTEIN 8.1 G/DL (6.4-8.2); eGFR 51 ML/MIN
[2021-08-01 13:38] LABS: URINE HCG NEGATIVE (NEG)
[2021-08-01 13:49] LABS: BACTERIA,URINE 2+ /HPF (Neg); RBC,URINE 0-2 /HPF (0-2); SQUAMOUS EPITHELIAL CELL,UR MODERATE /LPF (FEW); WBC,URINE 20-30 /HPF (0-4)
[2021-08-01] MEDS ORDERED: ketorolac trometh. 30mg/ml inj. IV ONE (14:05)
[2021-08-01] MEDS ORDERED: ondansetron/PF 4mg/2ml inj IV ONE (14:05)
[2021-08-01] MEDS: morphine 4 MG/ML inj SYRINge IV PRN ×2 (14:13→14:56)
[2021-08-01] MEDS ORDERED: proCHLORperazine 10 MG/2 ml inj IV ONE (15:00)
[2021-08-01] MEDS ORDERED: ONDA4TAB12 PO (15:43)
[2021-08-01] MEDS ORDERED: HYDR-3965 PO (15:43)
[2021-08-01] MEDS ORDERED: SULF1TAB49 PO (15:43)
[2021-08-01 15:54] VITALS: BP 129/85
== END 2021-08-01 15:57 | disposition home or self-care (01) ==
LOC: ER 13:00
DX: N10 Acute pyelonephritis (principal); F17.200 Nicotine dependence, unspecified, uncomplicated; I10 Essential (primary) hypertension; Z87.442 Personal history of urinary calculi; F32.A Depression, unspecified; F12.10 Cannabis abuse, uncomplicated; Z56.0 Unemployment, unspecified
CPT/HCPCS: 36415; 74176; 80053; 81001; 81025; 83605; 84145; 85025; 87040; 87077; 87088; 87186; 96365; 96366; 96375; 96376; 99285; J0696; J0780; J1885; J2270; J2405; J7030

== ENCOUNTER 2024-10-15 12:03 | Emergency (ER) | payer MEDICAID, MEDICARE, OTHER ==
[~2024-10-15] VITALS: Ht 170.2 cm; Wt 90.9 kg
[~2024-10-15 12:03] MED LIST changes: +LOSA-416 PO; -LOSA50TA3 PO; +ONDA-243 PO
--- NOTE | 2024-10-15 13:07 | Physician Documentation ---
History of Present Illness ~ Chief Complaint: See Chief Complaint Stated Complaint: RE-EVAL FOR CAST REMOVAL Time Seen by MD: 13:07 Primary Medical Doctor: FRANCA FERREIRA This is a 48-year-old female who presents to the emergency department requesting re-evaluation of a right trimalleolar fracture. She reports that on September 01, she had surgery to repair this fracture, which occurred after a fall. She lives home alone, so her friend from the [facility] came to pick her up and help take care of her. She reports that she was told to get an x-ray to evaluate for healing, and could then have her cast removed. She does not have any local care providers, including no local orthopedist. Tetanus witin 5 years: No Medication Reconciliation Allergies: Coded Allergies: codeine (Verified Allergy, Intermediate, HIVES, 02/15/21) baclofen (Verified Allergy, Unknown, 02/15/21) Scheduled Clonazepam (Clonazepam), 1 TAB PO BID, (Reported) Clonazepam (Clonazepam), 1 TAB PO 1300, (Reported) Cyclobenzaprine HCl (Cyclobenzaprine HCl), 1 TAB PO BID, (Reported) Hydrocodone Bit/Acetaminophen 5/325 MG ([place] 5/325 MG), 1 TABLET PO QID, (Reported) Losartan* (Cozaar*), 1 TAB PO DAILY, (Reported) Lurasidone HCl (Latuda), 1 TAB PO 1730, (Reported) Nicotine 14 MG Patch* (Habitrol 14 MG Patch*), 1 PATCH TD DAILY, (Reported) Omeprazole (Omeprazole), 1 CAP PO DAILY, (Reported) Propranolol Hcl (Propranolol Hcl), 1 TAB PO BID, (Reported) Scheduled PRN ONDANSETRON ODT 4mg tablet (Ondansetron Odt), 1 TABLET PO Q6H PRN for nausea/vomiting Past Medical History Past Medical History: Hypertension, Kidney Stones, UTI, Thyroid (unspecified), *CANCER*, Depression Past Surgical History: cancer surgery, , hysterectomy, orthopedic surgeries Patient History: FH: depression Schizophrenia Alcohol Use: Occasionally Drug Use: marijuana Lives with: Family Lives In: Home Occupation: unemployed Review of Systems ROS As stated above in the HPI, otherwise all systems are reviewed and negative. Physical Exam Vital Signs: Temperature: 98.9, Heart Rate: 99, Respiratory Rate: 18, BP: 138/55, Pulse Oximetry: 97, Weight: 90.910 Oxygen Flow Rate: 0 Physical Exam General: Alert, no apparent distress. Neck: Full range of motion. Respiratory: Lungs clear, no respiratory distress. Chest: No accessory muscle use. Cardiovascular: Regular rate and rhythm, no murmurs. Gastrointestinal: Soft, nontender, nondistended. Bowels sounds present. Extremities: Cast to right lower extremity. Mild edema without erythema to toes. Sensation intact. Neurologic: Oriented x4. Psychiatric: Normal mood and affect. Skin: Normal color, warm and dry. No edema, no ecchymosis. Progress Results/Orders Results/Orders Orders - LENI MILNER NP Ankle, Complete(3vw Min) (10/15/24 13:12) D/C Cast-Splint (10/15/24 ) Ortho Orders (10/15/24 ) Completed Orders - LENI MILNER NP Ankle, Complete(3vw Min) (10/15/24 13:12) Vital Signs 10/15/24 12:16 Temp 98.9 Pulse 99 Resp 18 B/P (MAP) 138/55 Pulse Ox 97 O2 Flow Rate 0 EKG/XRAY/CT/US/VASC/MRI Bone/Soft Tissue X-Ray (Spine) : Additional Comment [place] [id number] DIAGNOSTIC RADIOLOGY Patient: KANDI FOX Medical Record: [id number] [facility] : 1975, Age: 48 Sex: Female Location: ER Patient Status: [facility] ER Service Date/Time: 10/15/241311 Ordering Physician: LENI MILNER NP Exam: ANKLE, COMPLETE(3VW MIN) EXAM: DI ANKLE, COMPLETE(3VW MIN) CLINICAL INDICATION: evaluate healing TECHNIQUE: DI ANKLE, COMPLETE(3VW MIN) Comparison: None FINDINGS/IMPRESSION: ORIF of the distal tibia and fibula. Electronically Signed by:JOVON WASHINGTON MD Date & Time: 10/15/24 1400 Dictated by: JOVON WASHINGTON MD Dictation date and time: 10/15/24 1325 Primary Care Provider: NO PRIMARY CARE PROVIDER cc: LENI MILNER SUPERVISOR LOOPING ~ Medical Decision Making Additional Comment This is a 48-year-old female who reports that she had ORIF of a right trimalleolar fracture on 09/01/2024. She was out of town when this occurred, and a friend came and picked her up and brought her here. She was told to get a repeat x-ray to ensure adequate healing postoperatively at the six week av. X-ray was obtained showing stable hardware. She is to continue to non-weight bear, wear a walking boot, see ortho before she turns to her usual level of activity. Departure Time of Disposition: 14:26 Disposition: 01 HOME / SELF CARE / HOMELESS Impression: Primary Impression: Trimalleolar fracture of ankle, closed Qualified Codes: S82.851S - Displaced trimalleolar fracture of right lower leg, sequela Condition: Stable Additional Instructions: Please wear the walking boot, however, minimally weight bear on that right leg until you see the orthopedist. Elevate the right leg above the level of the heart as much as possible. Return if worse Referrals: NO PRIMARY CARE PROVIDER (PCP) ROSY ELLISON MD Education Educated: Patient Educated regarding: diagnosis, treatment, prognosis, need for follow up Signature Scribe Signature: x Attestation: The note accurately reflects work and decisions made by me.Leni Shelley NP 10/15/24 14:31 LENI MILNER NP Oct 15, 2024 13:07
--- NOTE | 2024-10-15 14:02 | RADIOLOGY REPORT ---
EXAM: DI ANKLE, COMPLETE(3VW MIN) CLINICAL INDICATION: evaluate healing TECHNIQUE: DI ANKLE, COMPLETE(3VW MIN) Comparison: None FINDINGS/IMPRESSION: ORIF of the distal tibia and fibula.
[2024-10-15 15:20] VITALS: BP 133/84; PULSE 73; RESP 16; TEMP 98.9; O2SAT 99
== END 2024-10-15 15:22 | disposition home or self-care (01) ==
LOC: ER 12:03
DX: S82.851D Displaced trimalleolar fracture of right lower leg, subsequent encounter for closed fracture with routine healing (principal); I10 Essential (primary) hypertension; F32.A Depression, unspecified; F12.90 Cannabis use, unspecified, uncomplicated; Z56.0 Unemployment, unspecified; Z72.89 Other problems related to lifestyle; Z88.5 Allergy status to narcotic agent; Z88.8 Allergy status to other drugs, medicaments and biological substances; Z90.710 Acquired absence of both cervix and uterus; Z79.899 Other long term (current) drug therapy; W19.XXXD Unspecified fall, subsequent encounter
CPT/HCPCS: 29515; 73610; 99283; L4360

== ENCOUNTER 2024-12-24 11:39 | Emergency (ER) | payer MEDICARE, OTHER ==
[~2024-12-24] VITALS: Ht 170.2 cm; Wt 111.6 kg
[2024-12-24 11:57] VITALS: TEMP 97.2
[2024-12-24 12:32] LABS: MEAN PLATELET VOLUME 7.6 FL (7.4-10.4); RED CELL DISTRIBUTION WIDTH 14.7 % (11.5-14.5)
--- NOTE | 2024-12-24 12:46 | Physician Documentation ---
History of Present Illness ~ Chief Complaint: Back Pain Stated Complaint: LOWER BACK PAIN Time Seen by MD: 12:03 Primary Medical Doctor: FRANCA RICHMOND Mode of Arrival: POV HPI This is a 49-year-old female with a history of chronic low back pain who presents with one day of increased low back pain with radiation to right flank and down both legs intermittently patient reports she had one episode of loss of bladder control when getting out of bed this morning and described urine as mu loraine. Patient reports she has history of kidney infections and slipped discs in her lumbar back. Patient reports no recent fevers. Medication Reconciliation Allergies: Coded Allergies: codeine (Verified Allergy, Intermediate, HIVES, 12/24/24) baclofen (Verified Allergy, Unknown, 12/24/24) Scheduled Clonazepam (Clonazepam), 1 TAB PO BID, (Reported) Clonazepam (Clonazepam), 1 TAB PO 1300, (Reported) Cyclobenzaprine HCl (Cyclobenzaprine HCl), 1 TAB PO BID, (Reported) Cyclobenzaprine* (Cyclobenzaprine*), 1 TAB PO TID Hydrocodone Bit/Acetaminophen 5/325 MG ([place] 5/325 MG), 1 TABLET PO QID, (Reported) Ibuprofen (Ibuprofen), 1 TAB PO Q8H Lidocaine (Lidoderm), 1 PATCH TOP DAILY Losartan* (Cozaar*), 1 TAB PO DAILY, (Reported) Lurasidone HCl (Latuda), 1 TAB PO 1730, (Reported) Nicotine 14 MG Patch* (Habitrol 14 MG Patch*), 1 PATCH TD DAILY, (Reported) Omeprazole (Omeprazole), 1 CAP PO DAILY, (Reported) Propranolol Hcl (Propranolol Hcl), 1 TAB PO BID, (Reported) Scheduled PRN ONDANSETRON ODT 4mg tablet (Ondansetron Odt), 1 TABLET PO Q6H PRN for nausea/vomiting Past Medical History Past Medical History: Hypertension, Kidney Stones, UTI, Thyroid (unspecified), *CANCER*, Depression Past Surgical History: cancer surgery, , hysterectomy, orthopedic surgeries Patient History: FH: depression Schizophrenia Alcohol Use: Occasionally Drug Use: marijuana Lives with: Family Lives In: Home Occupation: unemployed Review of Systems ROS As stated above in the HPI, otherwise all systems are reviewed and negative. Physical Exam Physical Exam Vital Signs: Temperature: 97.2, Source: Temporal, Heart Rate: 88, Respiratory Rate: 18, BP: 135/103, Pulse Oximetry: 97, Weight: 111.600 Oxygen Flow Rate: 0 Physical Exam VITALS: Reviewed and as above. GENERAL: Alert, nontoxic appearing, no apparent distress. RESPIRATORY: No increased work of breathing, no respiratory distress, speaking in full clear sentences BACK: Lower lumbar spine central spinal tenderness to palpation, no step-offs, no crepitus. No CVA tenderness Progress Results/Orders Results/Orders Orders - PRINCE MINAYAP Ct Lumbar Spine (12/24/24 12:03) Completed Orders - PRINCE MINAYA DIRECTOR PROSPECT Urinalysis, Cult If Indicated (12/24/24 12:03) Hcg, Ur Ql (12/24/24 12:03) Cbc/Diff (12/24/24 12:03) Lipase (12/24/24 12:03) CMP (12/24/24 12:03) Ct Lumbar Spine (12/24/24 12:03) Ketorolac Trometh 15mg/Ml Vial (Toradol (12/24/24 13:05) Cyclobenzaprine Tablet (Flexeril Tablet) (12/24/24 14:40) Lidocaine 5% Patch (Lidoderm 5% Patch) (12/24/24 14:40) Medications Received in ER Medications (Trade) Dose Ordered Sig/Dharmesh Route PRN Reason Start Time Stop Time Status Last Admin Dose Admin (Toradol injection) 15 mg ONCE ONCE IM 12/24/24 13:05 12/24/24 13:06 DC 12/24/24 13:10 15 MG (Flexeril tablet) 10 mg ONCE ONCE PO 12/24/24 14:40 12/24/24 14:41 DC 12/24/24 14:45 10 MG (Lidoderm 5% Patch) 1 patch ONCE ONCE TP 12/24/24 14:40 12/24/24 14:41 DC 12/24/24 14:45 1 PATCH Vital Signs 12/24/24 12/24/24 12/24/24 12/24/24 11:57 12:17 12:40 13:10 Temp 97.2 Pulse 88 71 Resp 16 18 17 12 B/P (MAP) 135/103 155/84 (107) Pulse Ox 97 98 O2 Flow Rate 0 12/24/24 14:34 Pulse 68 Resp 10 B/P (MAP) 148/80 (102) Pulse Ox 100 Laboratory Tests Test 12/24/24 12:20 12/24/24 14:10 White Blood Count 7.9 Red Blood Count 4.26 Hemoglobin 13.0 Hematocrit 39.1 Mean Corpuscular Volume 91.7 Mean Corpuscular Hemoglobin 30.6 Mean Corpuscular Hemoglobin Concent 33.3 Red Cell Distribution Width 14.7 H Platelet Count 355 Mean Platelet Volume 7.6 Neutrophils (%) (Auto) 63.2 Lymphocytes (%) (Auto) 30.2 Monocytes (%) (Auto) 4.9 Eosinophils (%) (Auto) 0.8 Basophils (%) (Auto) 0.9 Neutrophils # (Auto) 5.0 Lymphocytes # (Auto) 2.4 Monocytes # (Auto) 0.4 Eosinophils # (Auto) 0.1 Basophils # (Auto) 0.1 CBC Comment Sodium Level 136 Potassium Level 4.3 Chloride Level 101 Carbon Dioxide Level 26.0 Anion Gap 9 Blood Urea Nitrogen 17 Creatinine 0.92 H Estimated GFR/1.73 m2 64 BUN/Creatinine Ratio 18.5 Glucose Level 138 H Calcium Level 9.2 Total Bilirubin 0.4 Aspartate Amino Transf (AST/SGOT) 25 Alanine Aminotransferase (ALT/SGPT) 52 Alkaline Phosphatase 98 Total Protein 8.5 H Albumin 4.1 Globulin 4.4 H Albumin/Globulin Ratio 0.9 L Lipase 39 Chemistry Comments Urine Specimen Description Urinal Urine Color Yellow Urine Clarity Clear Urine pH 6.0 Urine Specific [place] 1.015 Urine Protein Negative Urine Glucose (UA) Negative Urine Ketones Negative Urine Occult Blood Negative Urine Nitrite Negative Urine Bilirubin Negative Urine Urobilinogen 0.2 Urine Leukocyte Esterase Negative Urine Culture Indicated Not ind Volume Urine Centrifuged 10 ml Urine HCG, Qualitative Negative Urine Comment EKG/XRAY/CT/US/VASC/MRI CT : Impression Exam: CT LUMBAR SPINE EXAM: CT CT LUMBAR SPINE INDICATION: Low back pain w/loss of bladder control COMPARISON: None TECHNIQUE: Multiple axial CT images of the lumbar spine were obtained using bone algorithm. Axial and coronal reformatting was done. Bone and soft tissue windows were reviewed. Radiation Dose Information: CT Dose: CTDI volume is 25 mGy. Dose-length product is 250 mGy*cm FINDINGS: No CT evidence of acute fracture or traumatic mal-alignment. The visualized paraspinal soft tissues are grossly unremarkable. The disc spaces are relatively preserved. There is multilevel degenerative c hange of the spine, with disc space narrowing, subchondral sclerosis, and marginal osteophyte formation. IMPRESSION: No CT evidence of acute fracture or traumatic mal-alignment of the bony lumbar spine. Radiation optimization: All CT scans at this facility use at least one of these dose optimization techniques: automated exposure control mA and/or kV adjustment per patient size (includes targeted exams where dose is matched to clinical indication) or iterative reconstruction. Electronically Signed by:GUSTAVO WASHINGTON MD Date & Time: 12/24/241326 Dictated by: GUSTAVO WASHINGTON MD Dictation date and time: 12/24/241326 I have reviewed and agree with the radiology report. I have reviewed and interpreted the imaging as: No vertebral fractures or acute malalignment Medical Decision Making Additional information obtaine: N/A Findings This 49-year-old female with a history of low back problems presented with increased low back pain that radiates intermittently to bilateral legs and to right thoracic back and flank of concern patient reported a single episode of loss of better control therefore CT of lumbar spine indicated. CT did d emonstrate evidence of acute spinal misalignment, spinal epidural abscess, or vertebral fractures, it is reassuring patient had a single episode of urinary incontinence in his had control of her bladder since this episode, and patient has no or progressively worsening numbness or weakness legs or saddle paresthesia, therefore I have low suspicion for cauda equina or other serious s lizz pathologies at this time. Given patient's history of chronic low back pain I suspect this is an acute exacerbation of chronic low back pain. Given patient's description of foul-smelling urine urinalysis and labs were obtained labs did not indicate evidence of infection or serious metabolic or electrolyte derangement. Patient is otherwise well-appearing with stable vital signs and appropriate for outpatient follow up. Patient provided careful return to care precautions and follow up instructions which she verbalized understanding of. Patient provided home care instructions which she verbalized understanding of. Differential Dx:Considerations: AAA, Appendicitis, DJD, Fracture, Musculoskeletal pain, Pyelonephritis, Strain, Urinary obstruction, Urolithiasis, Ovarian torsion, Urinary tract infection, Other (Cauda equina, spinal epidural abscess, spinal fracture, spinal cord injury) Departure Time of Disposition: 15:29 Disposition: 01 HOME / SELF CARE / HOMELESS Impression: Primary Impression: Acute on chronic low back pain Condition: Improved Discharge Instructions: Acute Back Pain, Adult Additional Instructions: I suspect this to be an exacerbation of your chronic low back pain, as we di scussed if your symptoms worsen please return to the emergency department. Otherwise please follow up with your primary care provider in the next few days. Please use the prescribed medications as needed for back pain, do not use the Flexeril with opioids or other medications that make you sleepy, do not operate heavy machinery or drive while taking Flexeril. Please return to the emergency department for any new or worsening concerning symptoms. Referrals: NO PRIMARY CARE PROVIDER (PCP) Prescriptions Lidocaine (Lidoderm) 5 % Adh..patch 1 PATCH TOP DAILY for 10 Days, #10 PATCH 0 Refills may wear up to 12 hours Prov: PRINCE MINAYA 12/24/24 Cyclobenzaprine* (Cyclobenzaprine*) 10 Mg Tablet 1 TAB PO TID, #15 TAB Prov: PRINCE MINAYA 12/24/24 Ibuprofen (Ibuprofen) 800 Mg Tablet 1 TAB PO Q8H for pain for 10 Days, #30 TAB 0 Refills Prov: PRINCE MINAYA 12/24/24 Education Educated: Patient Educated regarding: diagnosis, treatment, prognosis, need for follow up Signature Scribe Signature: No scribe Attestation: The note accurately reflects work and decisions made by me.ALLAN Colon 12/24/24 20:09 PRINCE MINAYA Dec 24, 2024 12:46
[2024-12-24 13:00] LABS: CREATININE 0.92 MG/DL (0.40-0.90); TOTAL CARBON DIOXIDE 26.0 MMOL/L (24-32); eCRCL 70 ML/MIN; eGFR 64 ML/MIN
[2024-12-24] MEDS: ketorolac trometh 15mg/ml vial 15 MG/ML ML IM ONE (13:10)
--- NOTE | 2024-12-24 13:30 | RADIOLOGY REPORT ---
EXAM: CT CT LUMBAR SPINE INDICATION: Low back pain w/loss of bladder control COMPARISON: None TECHNIQUE: Multiple axial CT images of the lumbar spine were obtained using bone algorithm. Axial and coronal reformatting was done. Bone and soft tissue windows were reviewed. Radiation Dose Information: CT Dose: CTDI volume is 25 mGy. Dose-length product is 250 mGy*cm FINDINGS: No CT evidence of acute fracture or traumatic mal-alignment. The visualized paraspinal soft tissues are grossly unremarkable. The disc spaces are relatively preserved. There is multilevel degenerative change of the spine, with disc space narrowing, subchondral sclerosis, and marginal osteophyte formation. IMPRESSION: No CT evidence of acute fracture or traumatic mal-alignment of the bony lumbar spine. Radiation optimization: All CT scans at this facility use at least one of these dose optimization techniques: automated exposure control mA and/or kV adjustment per patient size (includes targeted exams where dose is matched to clinical indication) or iterative reconstruction.
[2024-12-24 14:34] VITALS: BP 148/80; PULSE 68; RESP 10; O2SAT 100
[2024-12-24 14:34] LABS: LEUKOCYTE ESTERASE ,URINE NEGATIVE (Neg); NITRITES, URINE NEGATIVE (Neg); OCCULT BLOOD,URINE NEGATIVE (Neg)
[2024-12-24 14:46] LABS: UA COLLECTION TYPE URINAL
[2024-12-24 15:06] LABS: URINE HCG NEGATIVE (NEG)
[2024-12-24] MEDS ORDERED: LIDO-52 TOP (15:31)
[2024-12-24] MEDS ORDERED: IBUP-1986 PO (15:31)
[2024-12-24] MEDS ORDERED: CYCL-1 PO (15:31)
== END 2024-12-24 15:38 | disposition home or self-care (01) ==
LOC: ER 11:39
DX: G89.29 Other chronic pain (principal); M54.50 Low back pain, unspecified; I10 Essential (primary) hypertension; F32.A Depression, unspecified; Z72.89 Other problems related to lifestyle; F12.90 Cannabis use, unspecified, uncomplicated; Z88.5 Allergy status to narcotic agent; Z90.710 Acquired absence of both cervix and uterus; Z87.442 Personal history of urinary calculi; Z87.440 Personal history of urinary (tract) infections; Z85.850 Personal history of malignant neoplasm of thyroid; Z79.899 Other long term (current) drug therapy; Z56.0 Unemployment, unspecified
CPT/HCPCS: 36415; 72131; 80053; 81003; 81025; 83690; 85025; 96372; 99285; J1885